=== PATIENT | female | born 1940 | race Caucasian/White ===

== ENCOUNTER 2018-06-27 07:36 | Inpatient (IN) | payer MEDICARE, OTHER ==
[~2018-06-27] VITALS: Ht 162.6 cm; Wt 77.1 kg
[~2018-06-27 07:36] MED LIST: ACETAMINOPHEN120 MG RECTAL; ADVAIR 100-501 EACH INH; ALEVE220 M2 PO; ALVESCO6.1 G1 IH; BENADRYL25 MG ORAL; BISACODYL5 MG ORAL; DESONIDE MC; FLUTICASONE PRO16 G1 NASAL; HYDROXYZINE HCL10 M1 PO; IBUPROFEN600 MG ORAL; LEVALBUTER0.31 MG/3 IH; MIACALCIN1 SPRAYS NASAL; MUCINEX100 MG PO; NEXIUM2.5 MG ORAL; POTASSIUM99 M3 PO; VITAMIN D250000 UNI1 ORAL; XOPENEX0.63 MG/3 HHN
[2018-06-27] MEDS ORDERED: UNOBMED (07:48)
[2018-06-27 07:53] VITALS: BP 124/73
--- NOTE | 2018-06-27 08:12 | Emergency Room Report ---
History of Present Illness General Chief Complaint: Abdominal Pain Source: Patient, Family Member Present Illness HPI Patient presents with complaints of right upper quadrant and right flank pain that started 3 days ago patient reports that she recently came back from [place] after fairly extensive testing where it is a lung specialty facility Denies any chest pain or shortness of breath denies any vomiting or diarrhea she does have some increased nausea Patient reports that she is on multiple medications for her arthritis and her lung disease Denies any dysuria frequency denies any recent fall or trauma Allergies: Coded Allergies: SULFA (SULFONAMIDE ANTIBIOTICS) (Verified Allergy, Unknown, 07/27/16) Patient History Past Medical History: see triage record Pertinent Family History: none Reviewed Nursing Documentation: PMH: Agreed; PSxH: Agreed Nursing Documentation-PMH Past Medical History: No History, Except For Hx Cardiac Problems: No Hx Hypertension: No Hx Pacemaker: No Hx Asthma: Yes 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 Hx Diabetes: No Hx Cancer: No Hx Gastrointestinal Problems: Yes - constipation Hx Dialysis: No History Of Psychiatric Problem: No Hx Neurological Problems: No Hx Cerebrovascular Accident: No Hx Seizures: No Review of Systems All Other Systems: negative except mentioned in HPI Physical Exam Vital Signs Date Time Temp Pulse Resp B/P (MAP) Pulse Ox O2 Delivery O2 Flow Rate FiO2 06/27/18 07:43 97.2 86 14 124/73 99 Room Air 97.2 Sp02 EP Interpretation: reviewed, normal General Appearance: well appearing, no apparent distress Head: normocephalic, atraumatic Eyes: bilateral eye PERRL, bilateral eye EOMI ENT: hearing grossly normal, normal pharynx Neck: supple Respiratory: no respiratory distress, no retraction, no accessory muscle use, crackles - Fine crackles bilaterally Cardiovascular #1: regular rate, rhythm Gastrointestinal: non tender, soft, no mass, other - Subjectively points to the right upper quadrant, also right mid axillary just below the rib cage Genitourinary: no CVA tenderness Musculoskeletal: normal inspection Neurologic: alert, oriented x3 Skin: normal color, no rash Lymphatic: no adenopathy Medical Decision Making Diagnostic Impression: Primary Impression: Obstructive uropathy Additional Impression: UTI (urinary tract infection) ER Course With the history exam and presentation, multiple differentials considered, including but not limited to appendicitis, gastritis, cholecystitis, diverticulitis Patient's urine sample shows evidence of blood this raised the concern of possible kidney stone Patient has CT obtained which shows a 6 monitor proximal urethral stone with associated hydronephrosis Urine sample also shows UTI making the obstructive uropathy complex Patient provided with further hydration I spoke to the patient's family member who is also a physician She also agrees with admission and consultation with urology patient has done better with acute intervention and will be admitted for further care Labs Test 06/27/18 08:15 06/27/18 10:30 06/27/18 11:00 06/28/18 08:30 Urine Color Yellow Urine Appearance Clear Urine pH 5 (4.5-8.0) Urine Specific [place] 1.020 (1.005-1.035) Urine Protein 2+ (NEGATIVE) Urine Glucose (UA) Negative (NEGATIVE) Urine Ketones Negative (NEGATIVE) Urine Blood 5+ (NEGATIVE) Urine Nitrite Negative (NEGATIVE) Urine Bilirubin Negative (NEGATIVE) Urine Urobilinogen Normal MG/DL (0.0-1.0) Urine Leukocyte Esterase 3+ (NEGATIVE) Urine RBC 15-20 /HPF (0 - 2) Urine WBC 5-10 /HPF (0 - 2) Urine Squamous Epithelial Cells Few /LPF (NONE/OCC) Urine Bacteria Few /HPF (NONE) White Blood Count 6.8 K/UL (4.8-10.8) 4.2 K/UL (4.8-10.8) Red Blood Count 5.26 M/UL (4.20-5.40) 4.45 M/UL (4.20-5.40) Hemoglobin 16.0 G/DL (12.0-16.0) 13.4 G/DL (12.0-16.0) Hematocrit 46.5 % (37.0-47.0) 39.3 % (37.0-47.0) Mean Corpuscular Volume 88 FL (80-99) 88 FL (80-99) Mean Corpuscular Hemoglobin 30.5 PG (27.0-31.0) 30.1 PG (27.0-31.0) Mean Corpuscular Hemoglobin Concent 34.5 G/DL (32.0-36.0) 34.1 G/DL (32.0-36.0) Red Cell Distribution Width 11.4 % (11.6-14.8) 11.4 % (11.6-14.8) Platelet Count 231 K/UL (150-450) 179 K/UL (150-450) Mean Platelet Volume 9.7 FL (6.5-10.1) 6.9 FL (6.5-10.1) Neutrophils (%) (Auto) 45.3 % (45.0-75.0) 37.6 % (45.0-75.0) Lymphocytes (%) (Auto) 42.7 % (20.0-45.0) 48.2 % (20.0-45.0) Monocytes (%) (Auto) 10.3 % (1.0-10.0) 12.0 % (1.0-10.0) Eosinophils (%) (Auto) 0.6 % (0.0-3.0) 1.0 % (0.0-3.0) Basophils (%) (Auto) 1.2 % (0.0-2.0) 1.2 % (0.0-2.0) Sodium Level 141 MMOL/L (136-145) 142 MMOL/L (136-145) Potassium Level 4.1 MMOL/L (3.5-5.1) 4.0 MMOL/L (3.5-5.1) Chloride Level 106 MMOL/L (98-107) 109 MMOL/L (98-107) Carbon Dioxide Level 31 MMOL/L (21-32) 29 MMOL/L (21-32) Anion Gap 4 mmol/L (5-15) 4 mmol/L (5-15) Blood Urea Nitrogen 15 mg/dL (7-18) 10 mg/dL (7-18) Creatinine 1.0 MG/DL (0.55-1.30) 0.9 MG/DL (0.55-1.30) Estimat Glomerular Filtration Rate mL/min (>60) mL/min (>60) Glucose Level 102 MG/DL (74-106) 102 MG/DL (74-106) Calcium Level 8.7 MG/DL (8.5-10.1) 8.5 MG/DL (8.5-10.1) Total Bilirubin 0.4 MG/DL (0.2-1.0) Aspartate Amino Transf (AST/SGOT) 19 U/L (15-37) Alanine Aminotransferase (ALT/SGPT) 16 U/L (12-78) Alkaline Phosphatase 84 U/L (46-116) Total Protein 5.9 G/DL (6.4-8.2) Albumin 3.0 G/DL (3.4-5.0) Globulin 2.9 g/dL Albumin/Globulin Ratio 1.0 (1.0-2.7) Lipase 70 U/L (73-393) Test 06/29/18 16:00 Urine Color [place] Urine Appearance Cloudy Urine pH 5 (4.5-8.0) Urine Specific [place] 1.015 (1.005-1.035) Urine Protein 3+ (NEGATIVE) Urine Glucose (UA) 3+ (NEGATIVE) Urine Ketones Negative (NEGATIVE) Urine Blood 5+ (NEGATIVE) Urine Nitrite Positive (NEGATIVE) Urine Bilirubin 2+ (NEGATIVE) Urine Ictotest Negative (NEGATIVE) Urine Urobilinogen 4 MG/DL (0.0-1.0) Urine Leukocyte Esterase 1+ (NEGATIVE) Urine RBC Tntc /HPF (0 - 2) Urine WBC 5-10 /HPF (0 - 2) Urine Squamous Epithelial Cells Moderate /LPF (NONE/OCC) Urine Bacteria Moderate /HPF (NONE) CT/MRI/US Diagnostic Results CT/MRI/US Diagnostic Results : Impression CT abdomen pelvisIMPRESSION: 1. Mild right hydroureteronephrosis to the level of a 5-6 mm calculus in the proximal right ureter. 2. 2-3 mm calcified right lower lobe nodule, grossly unchanged, secondary to old granulomatous disease. 3. Status post hysterectomy. Last Vital Signs Date Time Temp Pulse Resp B/P (MAP) Pulse Ox O2 Delivery O2 Flow Rate FiO2 06/27/18 07:43 97.2 86 14 124/73 99 Room Air 97.2 Status: improved Disposition: ADMITTED INPATIENT Condition: Serious Referrals: NON PHYSICIAN (PCP) Oriana Laura DO Jun 27, 2018 08:12
[2018-06-27 08:23] LABS: APPEARANCE,URINE CLEAR; BILIRUBIN, URINE NEGATIVE (NEGATIVE); GLUCOSE, URINE (UA) NEGATIVE (NEGATIVE); KETONES,URINE NEGATIVE (NEGATIVE); LEUKOCYTE ESTERASE ,URINE 3+ (NEGATIVE); NITRITE,URINE NEGATIVE (NEGATIVE); PH,URINE 5 (4.5-8.0); PROTEIN,URINE 2+ (NEGATIVE); UROBILINOGEN,URINE NORMAL MG/DL (0.0-1.0)
[2018-06-27 08:35] LABS: COLOR,URINE YELLOW
--- NOTE | 2018-06-27 09:58 | Diagnostic Imaging Report ---
INDICATION: Abdominal pain TECHNIQUE: Multiple, contiguous axial cuts of the abdomen and pelvis are obtained from the lung bases to the ischial tuberosities. Sagittal and coronal reformatted images are available. One or more of the following dose reduction techniques were used: automated exposure control, adjustment of the mA and/or kV according to patient size, use of iterative reconstruction technique. COMPARISON: CT dated 07/27/16 FINDINGS: 2-3 mm calcified right lower lobe nodule. The lung bases are clear. The liver and spleen are normal in size and free of mass lesions. The gallbladder, bile ducts and pancreas are normal. The adrenal gland are unremarkable. The kidneys are normal in size and contour. No lesions. Mild right hydroureteronephrosis to the level of a 5-6 mm calculus in the proximal right ureter (image 45 series 6). No bowel obstruction. Status post hysterectomy. Atherosclerotic vascular disease. Aorta is normal caliber. No adenopathy or extraluminal air. The osseous structures are normal IMPRESSION: 1. Mild right hydroureteronephrosis to the level of a 5-6 mm calculus in the proximal right ureter. 2. 2-3 mm calcified right lower lobe nodule, grossly unchanged, secondary to old granulomatous disease. 3. Status post hysterectomy. CTDI: 19.51 mGy DLP: 973.66 mGycm
[2018-06-27] MEDS ORDERED: cefTRIAXone 1 GM in NS 55 ML IVPB ONE (10:30)
[2018-06-27 10:49] LABS: BASOPHILS % (AUTO) 1.2 % (0.0-2.0); EOSINOPHILS % (AUTO) 0.6 % (0.0-3.0); HEMATOCRIT 46.5 % (37.0-47.0); LYMPHOCYTES % (AUTO) 42.7 % (20.0-45.0); MEAN CORPUSCULAR VOLUME 88 FL (80-99); MONOCYTES % (AUTO) 10.3 % (1.0-10.0); NEUTROPHILS % (AUTO) 45.3 % (45.0-75.0); PLATELET COUNT 231 K/UL (150-450); RED BLOOD COUNT 5.26 M/UL (4.20-5.40); RED CELL DISTRIBUTION WIDTH 11.4 % (11.6-14.8); WHITE BLOOD COUNT 6.8 K/UL (4.8-10.8)
[2018-06-27 11:03] VITALS: BP 131/65
[2018-06-27 11:23] LABS: ANION GAP 4 mmol/L (5-15); BLOOD UREA NITROGEN 15 mg/dL (7-18); CALCIUM 8.7 MG/DL (8.5-10.1); CARBON DIOXIDE 31 MMOL/L (21-32); CHLORIDE 106 MMOL/L (98-107); POTASSIUM 4.1 MMOL/L (3.5-5.1); SODIUM 141 MMOL/L (136-145)
[2018-06-27 11:28] LABS: ALANINE AMINOTRANSFERASE 16 U/L (12-78); ALKALINE PHOSPHATASE 84 U/L (46-116); ASPARTATE AMINO TRANSFERASE 19 U/L (15-37); BILIRUBIN,TOTAL 0.4 MG/DL (0.2-1.0)
[2018-06-27] MEDS ORDERED: Ketorolac 30mg Inj IV ONE (11:45)
[2018-06-27 12:45] VITALS: BP 137/58
[2018-06-27 13:25] VITALS: BP 141/70
[2018-06-27] MEDS ORDERED: Norco 5mg/325mg tab ORAL PRN ×2 (13:45)
[2018-06-27] MEDS ORDERED: Milk of Magnesia 30ml Ud ORAL PRN (13:45)
[2018-06-27] MEDS ORDERED: Ketorolac 30mg Inj IV PRN (14:15)
--- NOTE | 2018-06-27 15:19 | Consultation ---
History of Present Illness General Date patient seen: Jun 27, 2018 Time patient seen: 15:15 Chief Complaint: Abdominal Pain Referring physician: Rea Reason for Consultation: Right ureteral stone Present Illness HPI 78 yo female with right renal colic. Strong family history, but patient has never had a stone. Denies fever/chills. Currently comfortable. Allergies: Coded Allergies: SULFA (SULFONAMIDE ANTIBIOTICS) (Verified Allergy, Unknown, 07/27/16) Medication History Scheduled Bisacodyl* (Dulcolax*), Unknown Dose ORAL DAILY, (Reported) Ergocalciferol (Vitamin D2)* (Vitamin D*), 50,000 UNIT ORAL ONCE A WEEK, ( Reported) Esomeprazole Magnesium (Nexium), Unknown Dose ORAL DAILY, (Reported) Fluticasone Propionate* (Fluticasone Propionate*), Unknown Dose NASAL DAILY, ( Reported) Fluticasone/Salmeterol (Advair 100-50 Diskus), 1 PUFF INH EVERY 12 HOURS, ( Reported) Ibuprofen* (Motrin*), Unknown Dose ORAL FOUR TIMES A DAY, (Reported) Levalbuterol Hcl (Xopenex*), Unknown Dose HHN Q4H, (Reported) Scheduled PRN Acetaminophen* (Tylenol*), Unknown Dose RECTAL Q4H PRN for Mild Pain/Temp > 100.5, (Reported) Diphenhydramine Hcl* (Benadryl*), Unknown Dose ORAL Q6H PRN for Itching, ( Reported) Miscellaneous Medications Calcitonin Verdon (Miacalcin), Unknown Dose NASAL, (Reported) Ciclesonide (Alvesco), Unknown Dose IH, (Reported) Desonide (Desonide), Unknown Dose MC, (Reported) Guaifenesin (Mucinex), Unknown Dose PO, (Reported) Hydroxyzine Hcl (Hydroxyzine Hcl), Unknown Dose PO, (Reported) Levalbuterol Hcl (Levalbuterol Hcl), Unknown Dose IH, (Reported) Naproxen Sodium (Aleve), Unknown Dose PO, (Reported) Potassium Gluconate (Potassium), Unknown Dose PO, (Reported) Unable to Obtain Medications (Unable To Obtain Meds), Unknown Dose, (Reported) Patient History Healthcare decision maker JACOBO MARTINEZ (Daughter) Resuscitation status Full Code Advanced Directive on File Review of Systems Constitutional: Denies: no symptoms, see HPI, chills, sweats, fever, malaise, weakness, other Respiratory: Denies: no symptoms, see HPI, cough, orthopnea, shortness of breath, stridor, wheezing, GUPTA, sputum, other Cardiovascular: Denies: no symptoms, see HPI, chest pain, edema, palpitations, syncope, PND, other Gastrointestinal: Reports: abdominal pain Genitourinary: Denies: no symptoms, see HPI, discharge, dysuria, frequency, hematuria, pain, retention, incontinence, urgency, vag bleed/dc, other Musculoskeletal: Denies: no symptoms, see HPI, back pain, gout, joint pain, joint swelling, muscle pain, muscle stiffness, other Skin: Denies: no symptoms, see HPI, rash, change in color, change in hair/nails , dryness, lesions, other Psychiatric: Denies: no symptoms, see HPI, prior hx, anxiety, depressed feelings, emotional problems, SI, HI, hallucinations, other Neurological: Denies: no symptoms, see HPI, headache, numbness, paresthesia, seizure, tingling, tremors, focal weakness, syncope, dizziness, other Endocrine: Denies: no symptoms, see HPI, excessive sweating, flushing, intolerance to temperature, increased thirst, increased urine, unexplained weight loss, other Hematologic/Lymphatic: Denies: no symptoms, see HPI, anemia, blood clots, easy bleeding, easy bruising, swollen glands, diathesis, other Physical Exam General Appearance: no apparent distress Neck: non-tender Respiratory/Chest: lungs clear Cardiovascular/Chest: normal rate, regular rhythm Abdomen: non tender, soft Last 24 Hour Vital Signs Date Time Temp Pulse Resp B/P (MAP) Pulse Ox O2 Delivery O2 Flow Rate FiO2 06/27/18 13:25 98.0 70 19 141/70 (93) 98 98.0 06/27/18 13:19 Room Air 06/27/18 13:00 98.4 70 20 137/58 98 Room Air 98.4 06/27/18 12:45 98.4 70 20 137/58 98 Room Air 98.4 06/27/18 12:22 98.4 06/27/18 11:52 98.0 06/27/18 11:03 98.0 73 15 131/65 99 Room Air 98.0 06/27/18 07:53 97.2 14 12473 99 Room Air 97.2 06/27/18 07:43 97.2 86 14 73 99 Room Air 97.2 Laboratory Tests Test 06/27/18 08:15 06/27/18 10:30 06/27/18 11:00 Urine Color Yellow Urine Appearance Clear Urine pH 5 (4.5-8.0) Urine Specific [place] 1.020 (1.005-1.035) Urine Protein 2+ (NEGATIVE) H Urine Glucose (UA) Negative (NEGATIVE) Urine Ketones Negative (NEGATIVE) Urine Blood 5+ (NEGATIVE) H Urine Nitrite Negative (NEGATIVE) Urine Bilirubin Negative (NEGATIVE) Urine Urobilinogen Normal MG/DL (0.0-1.0) Urine Leukocyte Esterase 3+ (NEGATIVE) H Urine RBC 15-20 /HPF (0 - 2) H Urine WBC 5-10 /HPF (0 - 2) H Urine Squamous Epithelial Cells Few /LPF (NONE/OCC) Urine Bacteria Few /HPF (NONE) White Blood Count 6.8 K/UL (4.8-10.8) Red Blood Count 5.26 M/UL (4.20-5.40) Hemoglobin 16.0 G/DL (12.0-16.0) Hematocrit 46.5 % (37.0-47.0) Mean Corpuscular Volume 88 FL (80-99) Mean Corpuscular Hemoglobin 30.5 PG (27.0-31.0) Mean Corpuscular Hemoglobin Concent 34.5 G/DL (32.0-36.0) Red Cell Distribution Width 11.4 % (11.6-14.8) L Platelet Count 231 K/UL (150-450) Mean Platelet Volume 9.7 FL (6.5-10.1) Neutrophils (%) (Auto) 45.3 % (45.0-75.0) Lymphocytes (%) (Auto) 42.7 % (20.0-45.0) Monocytes (%) (Auto) 10.3 % (1.0-10.0) H Eosinophils (%) (Auto) 0.6 % (0.0-3.0) Basophils (%) (Auto) 1.2 % (0.0-2.0) Sodium Level 141 MMOL/L (136-145) Potassium Level 4.1 MMOL/L (3.5-5.1) Chloride Level 106 MMOL/L (98-107) Carbon Dioxide Level 31 MMOL/L (21-32) Anion Gap 4 mmol/L (5-15) L Blood Urea Nitrogen 15 mg/dL (7-18) Creatinine 1.0 MG/DL (0.55-1.30) Estimat Glomerular Filtration Rate mL/min (>60) Glucose Level 102 MG/DL (74-106) Calcium Level 8.7 MG/DL (8.5-10.1) Total Bilirubin 0.4 MG/DL (0.2-1.0) Aspartate Amino Transf (AST/SGOT) 19 U/L (15-37) Alanine Aminotransferase (ALT/SGPT) 16 U/L (12-78) Alkaline Phosphatase 84 U/L (46-116) Total Protein 5.9 G/DL (6.4-8.2) L Albumin 3.0 G/DL (3.4-5.0) L Globulin 2.9 g/dL Albumin/Globulin Ratio 1.0 (1.0-2.7) Lipase 70 U/L (73-393) L Height (Feet): 5 Height (Inches): 4.00 Weight (Pounds): 170 Medications Current Medications Medications (Trade) Dose Ordered Sig/Kacey Route PRN Reason Start Time Stop Time Status Last Admin Dose Admin Acetaminophen (Tylenol) 650 mg Q4H PRN ORAL Mild Pain/Temp > 100.5 06/27/18 13:45 07/27/18 13:44 Al Hydroxide/Mg Hydroxide (Mylanta) 30 ml Q6H PRN ORAL indigestion 06/27/18 13:45 07/27/18 13:44 Atorvastatin Calcium (Lipitor) 15 mg BEDTIME ORAL 06/27/18 21:00 07/27/18 20:59 Duloxetine HCl (Cymbalta) 60 mg DAILY ORAL 06/28/18 09:00 07/28/18 08:59 Hydroxychloroquine Sulfate (Plaquenil) 200 mg TWICE A DAY ORAL 06/27/18 18:00 07/27/18 17:59 Ketorolac Tromethamine (Toradol 30mg) 15 mg Q4H PRN IV Moderate Pain (Pain Scale 4-6) 06/27/18 14:15 07/02/18 14:14 Magnesium Hydroxide (Mom) 30 ml DAILYPRN PRN ORAL Constipation 06/27/18 13:45 07/27/18 13:44 Ondansetron HCl (Zofran) 4 mg Q6H PRN IVP Nausea & Vomiting 06/27/18 13:45 07/27/18 13:44 Pantoprazole (Protonix) 40 mg DAILY IVP 06/28/18 09:00 07/28/18 08:59 Sodium Chloride 1,000 ml @ 100 mls/hr Q10H IV 06/27/18 13:46 07/27/18 13:45 06/27/18 14:32 Tamsulosin HCl (Flomax) 0.8 mg BEDTIME ORAL 06/27/18 21:00 07/27/18 20:59 Zolpidem Tartrate (Ambien) 5 mg HSPRN PRN ORAL Insomnia 06/27/18 13:45 07/04/18 13:[address]; Right 6 mm proximal ureteral stone Assessment/Plan Status: stable Assessment/Plan 78 yo female with first episode right renal colic. Stone is passable, but is quite proximal. discussed with patient and daughter. Will give a trial of conservative management to see if stone can pass. Then recommend ureteroscopy with lithotripsy on Thursday if stone is not passed by then. 1. IVF, IV pain medication 2. tamsulosin 0.8 mg nightly 3. strain urine 4. if stone has not passed by thursday night, plan for ureteroscopy with laser on thursday. Raul Shoemaker M.D. Jun 27, 2018 15:19
[2018-06-27 16:00] VITALS: BP 121/56
[2018-06-27 20:00] VITALS: BP 130/62
--- NOTE | 2018-06-27 20:00 | Consultation ---
DATE OF CONSULTATION: 06/27/2018 CONSULTING PHYSICIAN: Clark Story M.D. REASON FOR CONSULTATION: Right-sided hydronephrosis. HISTORY OF PRESENT ILLNESS: The patient is a pleasant 78-year-old female presented to emergency room complaining of right upper quadrant and flank pain that started 3 days ago. The patient says that 3 days ago, she started having urinary hesitancy. 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 In the emergency room, the patient underwent imaging via CT scan of the abdomen and pelvis, which was significant for right-sided hydroureter nephrosis to the level of a 5 to 6 mm calculus in the proximal right ureter. She has been initiated on IV fluids and Flomax. The patient says that she has never had a kidney stone in the past. ALLERGIES: Sulfa. PAST MEDICAL HISTORY: 1. Churg-Lili. 2. Fibromyalgia. 3. Arthritis. 4. Vitamin D deficiency. 5. Eosinophilic disorder. FAMILY HISTORY: The patient notes multiple family members with renal calculi. REVIEW OF SYSTEMS: NEUROLOGIC: The patient denies headache, change in vision, syncope or presyncopal episodes. CARDIOVASCULAR: No current chest pain, palpitations, or angina. PULMONARY: No difficulty breathing, productive cough or sputum. GASTROINTESTINAL/GENITOURINARY: The patient was having abdominal pain with urinary hesitancy. MUSCULOSKELETAL: The patient feeling well. Otherwise, no weakness or fatigue. PHYSICAL EXAMINATION: GENERAL: The patient is awake, alert, in no acute distress. VITAL SIGNS: Blood pressure 121/56, respiratory rate 20, pulse 74, and temperature 98.0 degrees. HEENT: Extraocular muscles intact. No lymphadenopathy noted. CARDIOVASCULAR: S1 and S2. No rubs or gallops. PULMONARY: Clear to auscultation bilaterally. No rales, rhonchi or wheezes. ABDOMEN: Nondistended and nontender. EXTREMITIES: No edema. LABORATORY AND DIAGNOSTIC DATA: Labs dated 06/27/2018, white cell count 6.8, hemoglobin 16, and platelet count 231. Sodium 141, potassium 4.1, BUN 15, creatinine 1, and calcium 8.7. Albumin 3.0. Urinalysis with 5+ blood and 15 to 20 rbc's. ASSESSMENT AND PLAN: 1. Hematuria at this time secondary to nephrolithiasis with a 6 mm calculus in the right proximal ureter. Continue aggressive hydration and re-evaluation in the morning. 2. Right-sided proximal hydroureter nephrosis due to renal calculus. Urology has been consulted. Aggressive hydration with Flomax. If renal calculi does not pass, defer management to interventional cystoscopy and lithotripsy. 3. Churg-Lili eosinophilia. Defer management to Pulmonary, Dr. Lucia. Let me take this opportunity to thank Dr. Lucia, for allowing me to assist in the care of this patient. Her renal function is currently stable with creatinine of 1.0. Hematuria secondary to renal calculus. Clark Story MD DR: GEORGE JOB#: [id number] CC:
[2018-06-27] MEDS: Tamsulosin 0.4mg cap ORAL SCH (20:34)
[2018-06-28] VITALS (7 sets, daily range): BP systolic 111–133; BP diastolic 55–73
[2018-06-28] MEDS: Zolpidem 5mg tab ORAL PRN ×2 (00:13→23:33)
[2018-06-28] MEDS: DULoxetine 30mg cap ORAL SCH ×2 (08:27→08:44)
[2018-06-28] MEDS: Pantoprazole Inj IVP SCH (08:27)
[2018-06-28 08:57] LABS: BASOPHILS % (AUTO) 1.2 % (0.0-2.0); HEMATOCRIT 39.3 % (37.0-47.0); HEMOGLOBIN 13.4 G/DL (12.0-16.0); LYMPHOCYTES % (AUTO) 48.2 % (20.0-45.0); MEAN CORPUSCULAR VOLUME 88 FL (80-99); NEUTROPHILS % (AUTO) 37.6 % (45.0-75.0); PLATELET COUNT 179 K/UL (150-450); RED BLOOD COUNT 4.45 M/UL (4.20-5.40); RED CELL DISTRIBUTION WIDTH 11.4 % (11.6-14.8); WHITE BLOOD COUNT 4.2 K/UL (4.8-10.8)
[2018-06-28 09:10] LABS: ANION GAP 4 mmol/L (5-15); BLOOD UREA NITROGEN 10 mg/dL (7-18); CALCIUM 8.5 MG/DL (8.5-10.1); CARBON DIOXIDE 29 MMOL/L (21-32); CHLORIDE 109 MMOL/L (98-107); CREATININE 0.9 MG/DL (0.55-1.30); SODIUM 142 MMOL/L (136-145)
--- NOTE | 2018-06-28 09:42 | Nephrology Progress Note ---
Assessment/Plan Assessment/Plan A/P 1) Right prox ureteral hydronephrosis - ureteroscopy with lithotripsy on Thursday if calculi has not passed - IVFs and flomax 2) Renal Function stable and within normal limits 3) Renal Calculi- first ocurrence. If recurrs will need 24 hr urine analysis Subjective Date patient seen: Jun 28, 2018 Time patient seen: 09:40 ROS Limited/Unobtainable: No Gastrointestinal/Abdominal: Reports: abdominal pain Allergies: Coded Allergies: SULFA (SULFONAMIDE ANTIBIOTICS) (Verified Allergy, Unknown, 07/27/16) All Systems: reviewed and negative except above Subjective Patient with mild right sided abdominal flank pain Objective Last 24 Hour Vital Signs Date Time Temp Pulse Resp B/P (MAP) Pulse Ox O2 Delivery O2 Flow Rate FiO2 06/28/18 09:00 Room Air 06/28/18 08:00 97.4 75 18 111/60 (77) 97 97.4 06/28/18 05:45 97.3 72 20 127/62 (83) 98 97.3 06/28/18 00:00 97.7 77 20 125/55 (78) 98 97.7 06/27/18 21:00 Room Air 06/27/18 20:00 98.2 74 19 130/62 (84) 97 98.2 06/27/18 16:00 98.0 74 20 121/56 (77) 99 98.0 06/27/18 13:25 98.0 70 19 141/70 (93) 98 98.0 06/27/18 13:19 Room Air 06/27/18 13:00 98.4 70 20 137/58 98 Room Air 98.4 06/27/18 12:45 98.4 70 20 137/58 98 Room Air 98.4 06/27/18 12:22 98.4 06/27/18 11:52 98.0 06/27/18 11:03 98.0 73 15 131/65 99 Room Air 98.0 Intake and Output 06/27/18 06/28/18 19:00 07:00 Intake Total 1505 ml 500 ml Balance 1505 ml 500 ml Intake IV Total 1505 ml 500 ml # Voids 1 Laboratory Tests 06/27/18 10:30: White Blood Count 6.8, Red Blood Count 5.26, Hemoglobin 16.0, Hematocrit 46.5, Mean Corpuscular Volume 88, Mean Corpuscular Hemoglobin 30.5, Mean Corpuscular Hemoglobin Concent 34.5, Red Cell Distribution Width 11.4L, Platelet Count 231, Mean Platelet Volume 9.7, Neutrophils (%) (Auto) 45.3, Lymphocytes (%) (Auto) 42.7, Monocytes (%) (Auto) 10.3H, Eosinophils (%) (Auto) 0.6, Basophils (%) ( Auto) 1.2 06/27/18 11:00: Sodium Level 141, Potassium Level 4.1, Chloride Level 106, Carbon Dioxide Level 31, Anion Gap 4L, Blood Urea Nitrogen 15, Creatinine 1.0, Estimat Glomerular Filtration Rate , Glucose Level 102, Calcium Level 8.7, Total Bilirubin 0.4, Aspartate Amino Transf (AST/SGOT) 19, Alanine Aminotransferase (ALT/SGPT) 16, Alkaline Phosphatase 84, Total Protein 5.9L, Albumin 3.0L, Globulin 2.9, Albumin /Globulin Ratio 1.0, Lipase 70L 06/28/18 08:30: White Blood Count 4.2L, Red Blood Count 4.45, Hemoglobin 13.4, Hematocrit 39.3, Mean Corpuscular Volume 88, Mean Corpuscular Hemoglobin 30.1, Mean Corpuscular Hemoglobin Concent 34.1, Red Cell Distribution Width 11.4L, Platelet Count 179, Mean Platelet Volume 6.9, Neutrophils (%) (Auto) 37.6L, Lymphocytes (%) (Auto) 48.2H, Monocytes (%) (Auto) 12.0H, Eosinophils (%) (Auto) 1.0, Basophils (%) ( Auto) 1.2, Sodium Level 142, Potassium Level 4.0, Chloride Level 109H, Carbon Dioxide Level 29, Anion Gap 4L, Blood Urea Nitrogen 10, Creatinine 0.9, Estimat Glomerular Filtration Rate , Glucose Level 102, Calcium Level 8.5 Height (Feet): 5 Height (Inches): 4.00 Weight (Pounds): 170 General Appearance: no apparent distress EENT: normal ENT inspection Neck: normal alignment, supple Cardiovascular: normal rate, regular rhythm Respiratory/Chest: lungs clear, normal breath sounds, no respiratory distress Abdomen: non tender, soft Edema: no edema noted Arm (L), no edema noted Arm (R), no edema noted Leg (L), no edema noted Leg (R), no edema noted Pedal (L), no edema noted Pedal (R), no edema noted Generalized Clark Story MD Jun 28, 2018 09:42
[2018-06-28] MEDS: Tamsulosin 0.4mg cap ORAL SCH (20:02)
--- NOTE | 2018-06-28 20:48 | History & Physical ---
History and Physical History & Physicial 78-year-old pleasant female presented to the emergency room with complaints of right upper quadrant/flank pain over the past 3 days the patient noted some urinary hesitancy and difficulty. 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 The patient underwent a CAT scan of the abdomen and pelvis which did show right-sided hydronephrosis with a noted calculus in the proximal right ureter. The patient started on IV hydration and Flomax and has been seen by urology and nephrology. The patient appears to be comfortable at present. The patient denies any prior history of renal calculi. The patient is currently without fevers or chills. Past medical history Churg-Lili, fibromyalgia, arthritis, eosinophilic lung disease, arthritis Family history is otherwise notable for renal calculi Review of systems All 10 points reviewed and are otherwise negative the patient does have joint pains and muscle pain next Physical examination Well-developed well-nourished female without significant distress The patient's vital signs are notable for blood pressure 127/63, heart rate 72, temperature 97.3, respiratory rate 22, oxygen saturation 98% HEENT overall negative extraocular movements are intact Lungs are otherwise clear without rhonchi wheezes Cardiac exam: Normal S1 and S2, regular rate and rhythm without murmurs or gallops Abdomen is soft nontender anteriorly with mild right flank tenderness Extremities no cyanosis clubbing or edema Labs Test 06/27/18 08:15 06/27/18 10:30 06/27/18 11:00 06/28/18 08:30 Urine Color Yellow Urine Appearance Clear Urine pH 5 (4.5-8.0) Urine Specific [place] 1.020 (1.005-1.035) Urine Protein 2+ (NEGATIVE) Urine Glucose (UA) Negative (NEGATIVE) Urine Ketones Negative (NEGATIVE) Urine Blood 5+ (NEGATIVE) Urine Nitrite Negative (NEGATIVE) Urine Bilirubin Negative (NEGATIVE) Urine Urobilinogen Normal MG/DL (0.0-1.0) Urine Leukocyte Esterase 3+ (NEGATIVE) Urine RBC 15-20 /HPF (0 - 2) Urine WBC 5-10 /HPF (0 - 2) Urine Squamous Epithelial Cells Few /LPF (NONE/OCC) Urine Bacteria Few /HPF (NONE) White Blood Count 6.8 K/UL (4.8-10.8) 4.2 K/UL (4.8-10.8) Red Blood Count 5.26 M/UL (4.20-5.40) 4.45 M/UL (4.20-5.40) Hemoglobin 16.0 G/DL (12.0-16.0) 13.4 G/DL (12.0-16.0) Hematocrit 46.5 % (37.0-47.0) 39.3 % (37.0-47.0) Mean Corpuscular Volume 88 FL (80-99) 88 FL (80-99) Mean Corpuscular Hemoglobin 30.5 PG (27.0-31.0) 30.1 PG (27.0-31.0) Mean Corpuscular Hemoglobin Concent 34.5 G/DL (32.0-36.0) 34.1 G/DL (32.0-36.0) Red Cell Distribution Width 11.4 % (11.6-14.8) 11.4 % (11.6-14.8) Platelet Count 231 K/UL (150-450) 179 K/UL (150-450) Mean Platelet Volume 9.7 FL (6.5-10.1) 6.9 FL (6.5-10.1) Neutrophils (%) (Auto) 45.3 % (45.0-75.0) 37.6 % (45.0-75.0) Lymphocytes (%) (Auto) 42.7 % (20.0-45.0) 48.2 % (20.0-45.0) Monocytes (%) (Auto) 10.3 % (1.0-10.0) 12.0 % (1.0-10.0) Eosinophils (%) (Auto) 0.6 % (0.0-3.0) 1.0 % (0.0-3.0) Basophils (%) (Auto) 1.2 % (0.0-2.0) 1.2 % (0.0-2.0) Sodium Level 141 MMOL/L (136-145) 142 MMOL/L (136-145) Potassium Level 4.1 MMOL/L (3.5-5.1) 4.0 MMOL/L (3.5-5.1) Chloride Level 106 MMOL/L (98-107) 109 MMOL/L (98-107) Carbon Dioxide Level 31 MMOL/L (21-32) 29 MMOL/L (21-32) Anion Gap 4 mmol/L (5-15) 4 mmol/L (5-15) Blood Urea Nitrogen 15 mg/dL (7-18) 10 mg/dL (7-18) Creatinine 1.0 MG/DL (0.55-1.30) 0.9 MG/DL (0.55-1.30) Estimat Glomerular Filtration Rate mL/min (>60) mL/min (>60) Glucose Level 102 MG/DL (74-106) 102 MG/DL (74-106) Calcium Level 8.7 MG/DL (8.5-10.1) 8.5 MG/DL (8.5-10.1) Total Bilirubin 0.4 MG/DL (0.2-1.0) Aspartate Amino Transf (AST/SGOT) 19 U/L (15-37) Alanine Aminotransferase (ALT/SGPT) 16 U/L (12-78) Alkaline Phosphatase 84 U/L (46-116) Total Protein 5.9 G/DL (6.4-8.2) Albumin 3.0 G/DL (3.4-5.0) Globulin 2.9 g/dL Albumin/Globulin Ratio 1.0 (1.0-2.7) Lipase 70 U/L (73-393) Impression Renal calculi Hydronephrosis Arthritis Churg-Lili Mild protein calorie malnutrition Recommendation IV hydration Flomax Urology/nephrology follow-up Pain control Strain all urine Consider urological intervention if stone has not been passed Brennan Lucia MD Jun 28, 2018 20:48
[2018-06-29] VITALS (11 sets, daily range): BP systolic 109–147; BP diastolic 56–78
[2018-06-29] MEDS ORDERED: LR 1000ml 1,000 ML IVLG SCH (07:07)
[2018-06-29] MEDS ORDERED: Iothalamate Meglumine 60% 30ML INJ ONE (07:10)
--- NOTE | 2018-06-29 07:12 | Anethesia Preoperative Eval ---
Anesthesia Pre-op PMH/ROS General Date of Evaluation: Jun 29, 2018 Anesthesiologist: Hunter ASA Score: ASA 3 Mallampati Score Class I : Soft palate, uvula, fauces, pillars visible Class II: Soft palate, uvula, fauces visible Class III: Soft palate, base of uvula visible Class IV: Only hard plate visible Mallampati Classification: Class II Surgeon: Sahara Diagnosis: Obstructive Uropathy Surgical Procedure: Cystoscopy, Laser Lithotripsy, JJ Stent Anesthesia History: none Social History: current smoker Family History: no anesthesia problems Allergies: Coded Allergies: SULFA (SULFONAMIDE ANTIBIOTICS) (Verified Allergy, Unknown, 07/27/16) Medications: see eMAR Past Medical History Cardiovascular: Reports: HTN Pulmonary: Reports: asthma, COPD Gastrointestinal/Genitourinary: Reports: GERD Other: obesity - BMI 30 Anesthesia Pre-op Phys. Exam Physician Exam Last Vital Signs Date Time Temp Pulse Resp B/P (MAP) Pulse Ox O2 Delivery O2 Flow Rate FiO2 06/29/18 04:00 97.4 82 18 140/72 (94) 99 97.4 06/28/18 21:00 Room Air Constitutional: NAD Neurologic: CN 2-12 intact Cardiovascular: RRR Respiratory: CTA Gastrointestinal: S/NT/ND Airway Exam Mallampati Score: Class II MO: limited ROM: limited Teeth: missing, intact Anesthesia Pre-op A/P Labs Hematology Test 06/28/18 08:30 White Blood Count 4.2 K/UL (4.8-10.8) L Red Blood Count 4.45 M/UL (4.20-5.40) Hemoglobin 13.4 G/DL (12.0-16.0) Hematocrit 39.3 % (37.0-47.0) Mean Corpuscular Volume 88 FL (80-99) Mean Corpuscular Hemoglobin 30.1 PG (27.0-31.0) Mean Corpuscular Hemoglobin Concent 34.1 G/DL (32.0-36.0) Red Cell Distribution Width 11.4 % (11.6-14.8) L Platelet Count 179 K/UL (150-450) Mean Platelet Volume 6.9 FL (6.5-10.1) Neutrophils (%) (Auto) 37.6 % (45.0-75.0) L Lymphocytes (%) (Auto) 48.2 % (20.0-45.0) H Monocytes (%) (Auto) 12.0 % (1.0-10.0) H Eosinophils (%) (Auto) 1.0 % (0.0-3.0) Basophils (%) (Auto) 1.2 % (0.0-2.0) Chemistry Test 06/28/18 08:30 Sodium Level 142 MMOL/L (136-145) Potassium Level 4.0 MMOL/L (3.5-5.1) Chloride Level 109 MMOL/L (98-107) H Carbon Dioxide Level 29 MMOL/L (21-32) Anion Gap 4 mmol/L (5-15) L Blood Urea Nitrogen 10 mg/dL (7-18) Creatinine 0.9 MG/DL (0.55-1.30) Estimat Glomerular Filtration Rate mL/min (>60) Glucose Level 102 MG/DL (74-106) Calcium Level 8.5 MG/DL (8.5-10.1) Risk Assessment & Plan Assessment: ASA 3 Plan: GA, SED Status Change Before Surgery: No Pre-Antibiotics Dru Gram Ancef IV Given Within 1 Hr of Incision: Yes Time Given: 08:01 Devendra Bhagat MD Jun 29, 2018 07:12
[2018-06-29] MEDS ORDERED: Labetalol 5mg/ml 20ml vial IV PRN (07:15)
[2018-06-29] MEDS ORDERED: Ketorolac 30mg Inj IV PRN ×4 (07:15→18:00)
[2018-06-29] MEDS ORDERED: Hydromorphone 0.5mg/0.5ml inj IVP PRN ×2 (07:15→17:45)
[2018-06-29] MEDS ORDERED: Midazolam 2mg/2ml Inj IVP PRN (07:15)
[2018-06-29] MEDS ORDERED: LORazepam Inj 2mg/ml 1ml IV PRN (07:15)
[2018-06-29] MEDS ORDERED: Atropine Sulfate 0.4mg/ml inj IVP PRN (07:15)
[2018-06-29] MEDS ORDERED: oxyCODONE HCL/Acetaminophen 5/325mg ORAL PRN (07:15)
[2018-06-29] MEDS ORDERED: fentaNYL 100 mcg/2 mL IV PRN (07:15)
[2018-06-29] MEDS ORDERED: HYDROcodone/Acetamin 7.5/325 tab ORAL PRN (07:15)
[2018-06-29] MEDS ORDERED: Norco 5mg/325mg tab ORAL PRN ×2 (07:15→17:45)
[2018-06-29] MEDS ORDERED: DiphenhydrAMINE 50mg/ml Inj IVP PRN (07:15)
--- NOTE | 2018-06-29 07:17 | Immediate Post-Op Evaluation ---
Immediate Post-Op Evalulation Immediate Post-Op Evalulation Procedure: Cystoscopy, Laser Lithotripsy, JJ Stent Date of Evaluation: Jun 29, 2018 Time of Evaluation: 09:30 IV Fluids: 500 LR Blood Products: 0 Estimated Blood Loss: 2 Urinary Output: 0 Blood Pressure Systolic: 147 Blood Pressure Diastolic: 72 Pulse Rate: 90 Respiratory Rate: 16 O2 Sat by Pulse Oximetry: 99 Temperature (Fahrenheit): 97.3 Pain Score (1-10): 2 Nausea: No Vomiting: No Complications 0 Patient Status: awake, reacts, patent, none Hydration Status: adequate Dru Gram Ancef IV Given Within 1 Hr of Incision: Yes Time Given: 08:01 Devendra Bhagat MD Jun 29, 2018 07:17
[2018-06-29] MEDS ORDERED: Dexamethasone 4mg/ml vial ONE (07:24)
[2018-06-29] MEDS ORDERED: Sodium Chloride 10ml vial INJ ONE (07:24)
[2018-06-29] MEDS ORDERED: Propofol 200mg/20ml IV ONE (07:24)
[2018-06-29] MEDS ORDERED: Lidocaine 1% MPF 10mg/ml 5ml ONE (07:24)
[2018-06-29] MEDS ORDERED: Alfentanil 2ml Inj ONE (07:25)
[2018-06-29] MEDS ORDERED: Midazolam 2mg/2ml Inj ONE (07:25)
[2018-06-29] MEDS ORDERED: Acetaminophen (Non formulary) 100 ML IV ONE (07:30)
[2018-06-29] MEDS ORDERED: Sterile Water Irrig 1000ml IRRIG ONE (07:45)
[2018-06-29] MEDS ORDERED: NS Irrig 4000ml IRRIG ONE (07:45)
[2018-06-29] MEDS ORDERED: LR 1000ml ONE (07:45)
[2018-06-29] MEDS ORDERED: NS Irrig 1000ml ONE (07:45)
--- NOTE | 2018-06-29 07:50 | Pre-Procedure Note/Attestation ---
Pre-Procedure Note/Attestation Complete Prior to Procedure Planned Procedure: right Procedure Narrative: cysto, right ureteroscopy with laser lithotripsy, possible JJ stent Indications for Procedure Pre-Operative Diagnosis: right ureteral stone Attestation I attest that I discussed the nature of the procedure; its benefits; risks and complications; and alternatives (and the risks and benefits of such alternatives ), prior to the procedure, with the patient (or the patient's legal representative personal service). I attest that, if there was a reasonable possibility of needing a blood transfusion, the patient (or the patient's legal representative personal service) was given the [facility] standardized written summary, pursuant to the [place] Blood Safety Act ([place] Health and Safety Code # 1645, as amended). I attest that I re-evaluated the patient just prior to the surgery and that there has been no change in the patient's H&P, except as documented below: Raul Shoemaker M.D. Jun 29, 2018 07:50
--- NOTE | 2018-06-29 08:34 | Nephrology Progress Note ---
Assessment/Plan Assessment/Plan A/P 1) Right prox ureteral hydronephrosis - ureteroscopy with lithotripsy today 2) Renal Function stable and within normal limits. recheck in am 3) Renal Calculi- first ocurrence. If recurrs will need 24 hr urine analysis Subjective Date patient seen: Jun 29, 2018 Allergies: Coded Allergies: SULFA (SULFONAMIDE ANTIBIOTICS) (Verified Allergy, Unknown, 07/27/16) Subjective Patient taken to OR suite for lithotripsy Objective Last 24 Hour Vital Signs Date Time Temp Pulse Resp B/P (MAP) Pulse Ox O2 Delivery O2 Flow Rate FiO2 06/29/18 04:00 97.4 82 18 140/72 (94) 99 97.4 06/28/18 23:31 98.1 76 18 133/69 (90) 98 98.1 06/28/18 21:00 Room Air 06/28/18 20:00 98.0 78 20 127/73 (91) 97 98.0 06/28/18 16:00 98.5 77 20 119/59 (79) 98 98.5 06/28/18 12:00 97.9 73 18 126/70 (88) 98 97.9 06/28/18 09:00 Room Air Intake and Output 06/28/18 06/29/18 19:00 07:00 Intake Total 1000 ml 1240 ml Output Total 0 ml Balance 1000 ml 1240 ml Intake Oral 600 ml 240 ml IV Total 400 ml 1000 ml Output Stool Total 0 ml # Voids 5 5 Height (Feet): 5 Height (Inches): 4.00 Weight (Pounds): 170 Clark Story MD Jun 29, 2018 08:34
[2018-06-29] MEDS: DULoxetine 30mg cap ORAL SCH ×2 (09:00→11:06)
[2018-06-29] MEDS: Pantoprazole Inj IVP SCH (09:00)
--- NOTE | 2018-06-29 09:10 | Brief Operative Note ---
Immediate Post Operative Note Operative Note Pre-op Diagnosis: right ureteral stone Procedure: cysto, right ureteroscopy, retrograde pyelogram right JJ stent Post-op Diagnosis: right ureteral stone Post-op Diagnosis: same as pre-op Surgeon: kulwant Additional Surgeons: mark (driscoll) Anesthesiologist: marjorie Anesthesia: general Specimen: none Complications: yes Condition: stable Fluids: 500 Estimated Blood Loss: none Drains: other - 6x24 JJ Implant(s) used?: Yes Raul Shoemaker M.D. Jun 29, 2018 09:10
--- NOTE | 2018-06-29 09:13 | Urology Progress Note ---
Assessment/Plan Assessment/Plan Able to place stent, unable to access stone with equipment in hospital. 1. ok to discharge, will attempt ureteroscopy again as outpatient. Subjective Date patient seen: Jun 29, 2018 Time patient seen: 09:12 ROS Limited/Unobtainable: No Allergies: Coded Allergies: SULFA (SULFONAMIDE ANTIBIOTICS) (Verified Allergy, Unknown, 07/27/16) All Systems: reviewed and negative except above Subjective did well with procedure Objective Last 24 Hour Vital Signs Date Time Temp Pulse Resp B/P (MAP) Pulse Ox O2 Delivery O2 Flow Rate FiO2 06/29/18 04:00 97.4 82 18 140/72 (94) 99 97.4 06/28/18 23:31 98.1 76 18 133/69 (90) 98 98.1 06/28/18 21:00 Room Air 06/28/18 20:00 98.0 78 20 127/73 (91) 97 98.0 06/28/18 16:00 98.5 77 20 119/59 (79) 98 98.5 06/28/18 12:00 97.9 73 18 126/70 (88) 98 97.9 Intake and Output 06/28/18 06/29/18 19:00 07:00 Intake Total 1000 ml 1240 ml Output Total 0 ml Balance 1000 ml 1240 ml Intake Oral 600 ml 240 ml IV Total 400 ml 1000 ml Output Stool Total 0 ml # Voids 5 5 Height (Feet): 5 Height (Inches): 4.00 Weight (Pounds): 170 General Appearance: no apparent distress Neck: non-tender Cardiovascular: normal rate, regular rhythm Respiratory/Chest: lungs clear Abdomen: non tender, soft Genitourinary/Rectal: normal genital exam Neurologic: no motor/sensory deficits Raul Shoemaker M.D. Jun 29, 2018 09:13
[2018-06-29] MEDS ORDERED: Ketorolac 30mg Inj IV SCH (12:00)
--- NOTE | 2018-06-29 12:40 | General Progress Note ---
Assessment/Plan Assessment/Plan Impression Renal calculi Hydronephrosis Arthritis Churg-Lili Mild protein calorie malnutrition s/p cystoscopy s/p stent Recommendation IV hydration Flomax Urology/nephrology follow-up after discharge increase toradol heating pad Pain control daughter attempting to get outpatient appt with a urologist prior to dc Subjective Allergies: Coded Allergies: SULFA (SULFONAMIDE ANTIBIOTICS) (Verified Allergy, Unknown, 07/27/16) Subjective failed procedure d/w daughter has pain Objective Last 24 Hour Vital Signs Date Time Temp Pulse Resp B/P (MAP) Pulse Ox O2 Delivery O2 Flow Rate FiO2 06/29/18 11:00 Room Air 06/29/18 11:00 98.0 76 18 115/61 (79) 98 98.0 06/29/18 10:17 97.9 06/29/18 10:17 97.9 79 14 109/59 99 Nasal Cannula 3 97.9 06/29/18 10:05 78 16 113/56 99 Nasal Cannula 3 06/29/18 09:55 80 18 111/56 99 Nasal Cannula 3 06/29/18 09:47 97.8 06/29/18 09:47 78 11 116/57 99 Nasal Cannula 3 06/29/18 09:29 85 15 126/57 99 Simple Mask 6 06/29/18 09:24 82 14 131/63 99 Simple Mask 6 06/29/18 09:19 97.3 90 16 147/78 99 Simple Mask 6 97.3 06/29/18 09:18 207.1 90 16 99 06/29/18 04:00 97.4 82 18 140/72 (94) 99 97.4 06/28/18 23:31 98.1 76 18 133/69 (90) 98 98.1 06/28/18 21:00 Room Air 06/28/18 20:00 98.0 78 20 127/73 (91) 97 98.0 06/28/18 16:00 98.5 77 20 119/59 (79) 98 98.5 Intake and Output 06/28/18 06/29/18 19:00 07:00 Intake Total 1000 ml 1240 ml Output Total 0 ml Balance 1000 ml 1240 ml Intake Oral 600 ml 240 ml IV Total 400 ml 1000 ml Output Stool Total 0 ml # Voids 5 5 Height (Feet): 5 Height (Inches): 4.00 Weight (Pounds): 170 Objective WDWN NAD clear breath sounds bilaterally without rhonchi or wheeze [id number] without MRG NABS nontender no HSM no CCE nonfocal Brennan Lucia MD Jun 29, 2018 12:40
[2018-06-29] MEDS: Phenazopyridine 200mg tab ORAL SCH ×2 (13:03→17:56)
--- NOTE | 2018-06-29 13:04 | Diagnostic Imaging Report ---
INDICATION: Pain, intraoperative, right flank pain TECHNIQUE: Intraoperative imaging Fluoroscopy time: 61.2 seconds Total dose: 0.55127 mGym2 Total number of images: 6 COMPARISON: None FINDINGS: Intraoperative images demonstrate opacification of the right ureter, placement of a right nephroureteral stent IMPRESSION: Intraoperative imaging, as described
[2018-06-29 16:41] LABS: APPEARANCE,URINE CLOUDY; BILIRUBIN, URINE 2+ (NEGATIVE); GLUCOSE, URINE (UA) 3+ (NEGATIVE); KETONES,URINE NEGATIVE (NEGATIVE); LEUKOCYTE ESTERASE ,URINE 1+ (NEGATIVE); NITRITE,URINE POSITIVE (NEGATIVE); PH,URINE 5 (4.5-8.0); PROTEIN,URINE 3+ (NEGATIVE); UROBILINOGEN,URINE 4 MG/DL (0.0-1.0)
[2018-06-29 16:44] LABS: COLOR,URINE ORANGE
[2018-06-29] MEDS: Hydromorphone 0.5mg/0.5ml inj IVP PRN ×3 (17:57→22:12)
[2018-06-29] MEDS: Tamsulosin 0.4mg cap ORAL SCH (20:10)
--- NOTE | 2018-06-29 23:00 | Operative Note - Dictated ---
DATE OF OPERATION: 06/29/2018 PRIMARY SURGEON: Raul Shoemaker M.D. PREOPERATIVE DIAGNOSIS: Right ureteral stone. POSTOPERATIVE DIAGNOSIS: Right ureteral stone. PROCEDURE PERFORMED: Cystoscopy, right ureteroscopy, retrograde pyelogram, and right double-J stent placement. ANESTHESIA: General. EBL: Minimal. COMPLICATIONS: None. DRAINS: 6 x 24 double-J stent. SPECIMEN: None. PREOPERATIVE HISTORY: The patient is a pleasant 78-year-old female with a history of right proximal ureteral stone 6 mm has not passed after 48 hours of conservative management in the hospital. The patient is due to be traveling and would like to get the stone removed considering the pain is persisting. The patient understands the risks and benefits of the procedure. Risks including, but not limited to, bleeding, infection, bladder injury, ureteral injury, urethral injury, retained stone fragment, and need for further surgery. The patient signed the consent and was taken to the operating room. OPERATIVE PROCEDURE: The patient was brought to the operating room where general anesthesia was achieved easily. She was placed in the dorsal lithotomy position and all pressure points were padded. She received preop antibiotics. A 22-Panamanian rigid cystoscope sheath was placed. The anterior urethra was normal and bladder was entered, which was normal. Bilateral ureteral orifices were in normal anatomical position. The right ureteral orifice was intubated with a 6-[place]amanian ureteral access catheter. Retrograde pyelogram was shot showing brisk filling of the distal, mid, and proximal ureter with some contrast making it up into a slightly hydronephrotic renal pelvis. A Glidewire was passed up and coiled into the renal pelvis. A semi-rigid ureteroscope was then advanced as no filling defects or obvious hyperdensities were noted on fluoroscopy. The ureter was interrogated starting with a semirigid ureteroscope. The ureter was accessed with the assistance of a second guidewire. The distal ureter was clear of stone. Middle and proximal ureter were cleared of stone. The ureteroscope was then removed and a flexible ureteroscope was advanced over the existing Glidewire. Diagnostic nephroscopy was performed. The imaging on the ureteroscope was not great, but I was able to locate what seemed to be yellow stone consistent with the CT scan findings that seemed to be navigated up into the upper pole likely pushed up by the wire. There was an acute angle at the level of the distal ureter that was not allowing the passage of the ureteroscope further up into the upper pole. 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 Unfortunately, there was only an 11-Panamanian x 12-Panamanian ureteral access sheath available. Ureteral access sheath was passed over a guidewire. It was not long enough. It only reached the mid ureter and was not wide enough to pass the existing ureteroscope either. So, at this point, since I was unable to access the stone, the ureteral guidewire was passed back through the access sheath and coiled in the upper pole calyx. The access sheath was removed and using a cystoscope, a 6 x 24 double-J stent was advanced. Good curl was noted in the renal pelvis and a good curl was noted in the bladder. Of note, when the ureteroscope was passed initially, retrograde pyelogram was shot showing brisk filling of complex middle and lower pole calices as well as confirming a slight malrotation to the collecting system. After the stent was passed, a good curl was seen in the renal pelvis and a good curl was seen in the bladder. The bladder was emptied. The patient was then woken up and taken to recovery room in stable fashion. I was present for the entire case. All instrument counts were correct at the end of the case. PLAN: 1. The patient should be able to go home later today. 2. Recommend elective procedure next week with longer access sheath and digital ureteroscope to aid in the visualization of stone, lithotripsy, and removal. Raul Shoemaker DR: SUDHIR JOB#: [id number] CC:
[2018-06-29] MEDS: Zolpidem 5mg tab ORAL PRN (23:13)
[2018-06-30 00:12] VITALS: BP 104/54
[2018-06-30] MEDS ORDERED: FLOMAX0.4 MG ORAL (07:59)
[2018-06-30] MEDS ORDERED: CEPHALEXIN500 MG ORAL (07:59)
[2018-06-30] MEDS ORDERED: NORCO 5-325 TA1 EACH ORAL (07:59)
[2018-06-30 08:00] VITALS: BP 122/68
--- NOTE | 2018-06-30 08:01 | 48 Hour Post Anesthesia Eval ---
Post Anesthesia Evaluation Procedure: Cystoscopy, Laser Lithotripsy, JJ Stent Date of Evaluation: Jun 30, 2018 Time of Evaluation: 06:15 Blood Pressure Systolic: 104 0: 54 Pulse Rate: 73 Respiratory Rate: 17 Temperature (Fahrenheit): 98.2 O2 Sat by Pulse Oximetry: 95 Airway: patent Nausea: No Vomiting: No Pain Intensity: 0 Hydration Status: adequate Cardiopulmonary Status: at baseline Mental Status/LOC: patient returned to baseline Post-Anesthesia Complications: 0 Follow-up care needed: N/A - further care as per primary team Ginny Mejia MD Jun 30, 2018 08:01
[2018-06-30 08:05] LABS: ANION GAP 3 mmol/L (5-15); BLOOD UREA NITROGEN 13 mg/dL (7-18); CARBON DIOXIDE 29 MMOL/L (21-32); CHLORIDE 108 MMOL/L (98-107); CREATININE 0.9 MG/DL (0.55-1.30); POTASSIUM 5.3 MMOL/L (3.5-5.1); SODIUM 140 MMOL/L (136-145)
--- NOTE | 2018-06-30 08:10 | General Progress Note ---
Assessment/Plan Problem List: (1) UTI (urinary tract infection) ICD Codes: N39.0 - Urinary tract infection, site not specified SNOMED: 30152851 (2) Kidney stone ICD Codes: N20.0 - Calculus of kidney SNOMED: 93385670 (3) Constipation ICD Codes: K59.00 - Constipation, unspecified SNOMED: 21365109 (4) Obstructive uropathy ICD Codes: N13.9 - Obstructive and reflux uropathy, unspecified SNOMED: 5362136 Status: stable Assessment/Plan dc today po norco prn pain flomax added keflex- gram positive in urine culture d/w . pt has appointment tomorrow Subjective ROS Limited/Unobtainable: No Constitutional: Reports: malaise, weakness HEENT: Reports: no symptoms Cardiovascular: Reports: no symptoms Respiratory: Reports: no symptoms Gastrointestinal/Abdominal: Reports: no symptoms Genitourinary: Reports: no symptoms Neurologic/Psychiatric: Reports: no symptoms Endocrine: Reports: no symptoms Hematologic/Lymphatic: Reports: no symptoms Allergies: Coded Allergies: SULFA (SULFONAMIDE ANTIBIOTICS) (Verified Allergy, Unknown, 07/27/16) All Systems: reviewed and negative except above Subjective denies pain. no nausea or vomiting. unable to reach stone yesterday. unable to do lithotripsy. stent placed Objective Last 24 Hour Vital Signs Date Time Temp Pulse Resp B/P (MAP) Pulse Ox O2 Delivery O2 Flow Rate FiO2 06/30/18 08:01 208.8 73 17 95 06/30/18 00:12 98.2 73 17 104/54 (71) 95 98.2 06/29/18 21:00 Room Air 06/29/18 20:00 97.8 66 18 115/67 (83) 94 97.8 06/29/18 16:15 97.8 76 18 110/59 (76) 93 97.8 06/29/18 11:00 Room Air 06/29/18 11:00 98.0 76 18 115/61 (79) 98 98.0 06/29/18 10:17 97.9 06/29/18 10:17 97.9 79 14 109/59 99 Nasal Cannula 3 97.9 06/29/18 10:05 78 16 113/56 99 Nasal Cannula 3 06/29/18 09:55 80 18 111/56 99 Nasal Cannula 3 06/29/18 09:47 97.8 06/29/18 09:47 78 11 116/57 99 Nasal Cannula 3 06/29/18 09:29 85 15 126/57 99 Simple Mask 6 06/29/18 09:24 82 14 131/63 99 Simple Mask 6 06/29/18 09:19 97.3 90 16 147/78 99 Simple Mask 6 97.3 06/29/18 09:18 207.1 90 16 99 Intake and Output 06/29/18 06/30/18 19:00 07:00 Intake Total 2100 ml 1060 ml Output Total 602 ml Balance 1498 ml 1060 ml Intake Oral 600 ml 360 ml IV Total 1500 ml 700 ml Output Urine Total 600 ml Estimated Blood Loss 2 ml # Voids 3 2 Laboratory Tests 06/29/18 16:00: Urine Color [place], Urine Appearance Cloudy, Urine pH 5, Urine Specific [place] 1.015, Urine Protein 3+H, Urine Glucose (UA) 3+H, Urine Ketones Negative, Urine Blood 5+H, Urine Nitrite PositiveH, Urine Bilirubin 2+H, Urine Ictotest Negative , Urine Urobilinogen 4H, Urine Leukocyte Esterase 1+H, Urine RBC TntcH, Urine WBC 5-10H, Urine Squamous Epithelial Cells ModerateH, Urine Bacteria ModerateH 06/30/18 06:55: Sodium Level 140, Potassium Level 5.3H, Chloride Level 108H, Carbon Dioxide Level 29, Anion Gap 3L, Blood Urea Nitrogen 13, Creatinine 0.9, Estimat Glomerular Filtration Rate , Glucose Level 119H, Calcium Level 9.0 Height (Feet): 5 Height (Inches): 4.00 Weight (Pounds): 170 General Appearance: WD/WN, alert Neck: supple Cardiovascular: normal rate Respiratory/Chest: chest wall non-tender, lungs clear, normal breath sounds Abdomen: normal bowel sounds, non tender, no organomegaly Edema: no edema noted Arm (L), no edema noted Arm (R), no edema noted Leg (L), no edema noted Leg (R), no edema noted Pedal (L), no edema noted Pedal (R), no edema noted Generalized Guillaume Mandel MD Jun 30, 2018 08:10
[2018-06-30] MEDS: DULoxetine 30mg cap ORAL SCH (08:45)
[2018-06-30] MEDS: Phenazopyridine 200mg tab ORAL SCH (08:45)
[2018-06-30] MEDS: Pantoprazole Inj IVP SCH (08:45)
--- NOTE | 2018-06-30 09:18 | Nephrology Progress Note ---
Assessment/Plan Assessment/Plan A/P 1) Right prox ureteral hydronephrosis - Able to place stent, unable to access stone - f/u post DC with Urology 2) Renal Function stable and within normal limits. 3) Renal Calculi- first ocurrence. If recurrs will need 24 hr urine analysis 4) Very mild hyperk+ - LR stopped, low K+ diet and recheck BMP in 2 days as outpt per Urology f/u Subjective Date patient seen: Jun 30, 2018 Time patient seen: 09:16 ROS Limited/Unobtainable: No Allergies: Coded Allergies: SULFA (SULFONAMIDE ANTIBIOTICS) (Verified Allergy, Unknown, 07/27/16) Subjective Patient to be discharged today Objective Last 24 Hour Vital Signs Date Time Temp Pulse Resp B/P (MAP) Pulse Ox O2 Delivery O2 Flow Rate FiO2 06/30/18 08:01 208.8 73 17 95 06/30/18 08:00 97.4 70 18 122/68 (86) 99 97.4 06/30/18 00:12 98.2 73 17 104/54 (71) 95 98.2 06/29/18 21:00 Room Air 06/29/18 20:00 97.8 66 18 115/67 (83) 94 97.8 06/29/18 16:15 97.8 76 18 110/59 (76) 93 97.8 06/29/18 11:00 Room Air 06/29/18 11:00 98.0 76 18 115/61 (79) 98 98.0 06/29/18 10:17 97.9 06/29/18 10:17 97.9 79 14 109/59 99 Nasal Cannula 3 97.9 06/29/18 10:05 78 16 113/56 99 Nasal Cannula 3 06/29/18 09:55 80 18 111/56 99 Nasal Cannula 3 06/29/18 09:47 97.8 06/29/18 09:47 78 11 116/57 99 Nasal Cannula 3 06/29/18 09:29 85 15 126/57 99 Simple Mask 6 06/29/18 09:24 82 14 131/63 99 Simple Mask 6 06/29/18 09:19 97.3 90 16 147/78 99 Simple Mask 6 97.3 06/29/18 09:18 207.1 90 16 99 Intake and Output 06/29/18 06/30/18 19:00 07:00 Intake Total 2100 ml 1060 ml Output Total 602 ml Balance 1498 ml 1060 ml Intake Oral 600 ml 360 ml IV Total 1500 ml 700 ml Output Urine Total 600 ml Estimated Blood Loss 2 ml # Voids 3 2 Laboratory Tests 06/29/18 16:00: Urine Color [place], Urine Appearance Cloudy, Urine pH 5, Urine Specific [place] 1.015, Urine Protein 3+H, Urine Glucose (UA) 3+H, Urine Ketones Negative, Urine Blood 5+H, Urine Nitrite PositiveH, Urine Bilirubin 2+H, Urine Ictotest Negative , Urine Urobilinogen 4H, Urine Leukocyte Esterase 1+H, Urine RBC TntcH, Urine WBC 5-10H, Urine Squamous Epithelial Cells ModerateH, Urine Bacteria ModerateH 06/30/18 06:55: Sodium Level 140, Potassium Level 5.3H, Chloride Level 108H, Carbon Dioxide Level 29, Anion Gap 3L, Blood Urea Nitrogen 13, Creatinine 0.9, Estimat Glomerular Filtration Rate , Glucose Level 119H, Calcium Level 9.0 Height (Feet): 5 Height (Inches): 4.00 Weight (Pounds): 170 General Appearance: WD/WN, no apparent distress EENT: normal ENT inspection Neck: normal alignment, supple Cardiovascular: normal rate, regular rhythm Respiratory/Chest: lungs clear, normal breath sounds Abdomen: non tender, soft Edema: no edema noted Arm (L), no edema noted Arm (R), no edema noted Leg (L), no edema noted Leg (R), no edema noted Pedal (L), no edema noted Pedal (R), no edema noted Generalized Clark Story MD Jun 30, 2018 09:18
[2018-06-30] MEDS: Hydromorphone 0.5mg/0.5ml inj IVP PRN (10:26)
[2018-06-30 12:00] VITALS: BP 112/58
--- NOTE | 2018-07-01 09:39 | Discharge Summary ---
Discharge Summary Discharge Summary _ DATE OF ADMISSION: 06/27/2018 DATE OF DISCHARGE: 06/30/2018 CONSULTANTS: Dr. Clark Shoemaker BRIEF HOSPITAL COURSE: Patient is a 78-year-old female, presented to the emergency room with complaints of right upper quadrant/flank pain for the past 3 days. Patient noted urinary hesitancy and difficulty. 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 She underwent CAT scan of the abdomen and pelvis that showed right-sided hydronephrosis with a noted calculus in the proximal right ureter. She was admitted and started on IV hydration and Flomax. She denied fever and chills. She was seen by assistant analyst and urologist. She was given trial of conservative management if she will be able to pass the stone. Kidney function was monitored. Urine was strained. She was given pain management. She was placed on pyridium. She was not able to pass stone. On 06/29/2018, she underwent cystoscopy with right ureteroscopy and retrograde pyelogram and right double-J stent placement. Stone was not visualized as access sheath was not able to reach the stone. She tolerated procedure well. Urine culture grew mixed gram-positive organisms. She was given Keflex . She was cleared for discharge, recommended to have elective procedure next week with a longer access sheath and digital ureteroscope to aid in the visualization of stone, lithotripsy and removal. FINAL DIAGNOSES: Obstructive uropathy with hydronephrosis Urinary tract infection Kidney stone Arthritis Churg-Lili syndrome Mild protein calorie malnutrition Constipation Mild hyperkalemia Status post cystoscopy, ureteroscopy, retrograde pyelogram and right double-J stent placement DISPOSITION: Patient was discharged home. DISCHARGE MEDICATIONS: Refer to Discharge Medication List. DISCHARGE INSTRUCTIONS: Follow up within a week. I have been assigned to dictate discharge summary on this account, and I was not involved in the patient's management. Maral Chaves NP Jul 01, 2018 09:39
== END 2018-06-30 12:30 | disposition home or self-care (01) | DRG 694 ==
LOC: EMR 08:07 → 4E 10:31 → EDBEDREQ 11:13 → 3E 13:24
PROC: 0TJ98ZZ Inspection of Ureter, Via Natural or Artificial Opening Endoscopic (ICD-10-PCS; principal; 2018-06-29 07:30)
PROC: 0T768DZ Dilation of Right Ureter with Intraluminal Device, Via Natural or Artificial Opening Endoscopic (ICD-10-PCS; principal; 2018-06-29 07:30)
PROC: BT1DZZZ Fluoroscopy of Right Kidney, Ureter and Bladder (ICD-10-PCS; principal; 2018-06-29 07:30)
DX: N13.2 Hydronephrosis with renal and ureteral calculous obstruction (principal); M30.1 Polyarteritis with lung involvement [Churg-Strauss]; E44.1 Mild protein-calorie malnutrition; N39.0 Urinary tract infection, site not specified; K59.00 Constipation, unspecified; E87.5 Hyperkalemia; M79.7 Fibromyalgia; Z88.2 Allergy status to sulfonamides; M19.90 Unspecified osteoarthritis, unspecified site
CPT/HCPCS: 36415; 74176; 74420; 76000; 76001; 80048; 80053; 81001; 81003; 83690; 85025; 87086; 94003; 94150; 96365; 99285; J2250; J2405; J3490